=== PATIENT | female | born 2005 | race Caucasian/White ===

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

== ENCOUNTER → 2024-03-17 10:20 | Outpatient (BNV) | payer MEDICAID, SELFPAY ==
--- NOTE | 2024-03-17 10:20 | MHC.OFFVIS ---
Intake Visit Reasons: Amb Documentation Allergies No Known Allergies Allergy (Verified 11/03/23 09:48) HPI Comments Details: student came to me this morning- states she wants test, she took b/c out 2 weeks ago and 2 days after that had sex, they want another baby. she vomited this morning - hasn't done any preg tests. stopped antidepressnats per her doctor who wants her off all other meds so she can start adhd meds - which if she is she won't be able to start and that's ok . she states this is not a virus and that she often gets nauseous before preg tests are positive. [facility] Medical History Stress at home Nexplanon in place Anxiety and depression ADHD Surgical History H/O right wrist surgery Family History Mother No problems noted. Sister No problems noted. Sister No problems noted. Sister No problems noted. Brother No problems noted. Son No problems noted. Review of Systems Const Details: Counseling visit: All systems reviewed & are unremarkable except as noted in HPI and below Reports as per HPI Resp Reports as per HPI GI Reports as per HPI Musc Reports as per HPI Neuro Reports as per HPI Psych Reports as per HPI Physical Exam Const Other: later reported vomiting again - states vomiting blood - not witnessed General: cooperative, healthy appearing and no acute distress Nutritional Appearance: well nourished Orientation/consciousness: oriented to person Limitations: no limitations HEENT Other: wnl Mouth: moist mucous membranes Eyes Other: wnl Chest Other: easy breathing Resp Effort & Inspection: able to speak in complete sentences GI Other: no distress noted during visit Skin Other: normal in appearance - color good Neuro General: oriented to person Psych Other: see HPI Appearance: grossly normal and well kempt Mental Status: mental status grossly normal Speech and movement: Clear speech present Affect: normal affect Attitude: cooperative Thought process: Normal thought process present Assessment & Plan Assessment & Plan (1) Irregular menses: Code(s): N92.6 - Irregular menstruation, unspecified Category: Medical (2) Vomiting: Code(s): R11.10 - Vomiting, unspecified Category: Medical Qualifiers: Vomiting type: unspecified Plan student requested tests. later vomiting states vomiting up blood - excused and sent to pcp. doesn't want any other counseling re: cotrol as she would like to get preg Orders: Orders AMB HCG Urine Test Today N92.6 - Irregular menstruation, unspecified, R11.10 - Vomiting, unspecified, Z32.02 - Encounter for test, result negative Coding Level of Care Code Est Pt Level 4 (91276) Diagnoses Irregular menses N92.6 Vomiting R11.10 Vomiting type: unspecified Time Spent (min) 30 Comment counseling and plan established w/ student then continued vomiting counseling again.
== END ==
PROVIDERS: PCP Nurse Practitioner Family; Visit Provider Nurse Practitioner Family
DX: N92.6 Irregular menstruation, unspecified (principal); R11.10 Vomiting, unspecified
CPT/HCPCS: 99214